=== PATIENT | female | born 1965 | race Hispanic/Latino ===

== ENCOUNTER 2017-04-20 09:42 | Emergency (ER) | payer BC ==
[2017-04-20 09:43] VITALS: BMI 30.1
[2017-04-20 10:15] VITALS: TEMP 98.2; O2SAT 100
--- NOTE | 2017-04-20 10:27 | ED PDOC ---
Arrival/HPI - General Chief Complaint: Back Pain Time Seen by Provider: 04/20/17 10:11 Historian: Patient - History of Present Illness Narrative History of Present Illness (Text): 51 y/o F c PMHx HTN, s/p ACL repair 2 months ago p/w thoracic pain and shortness of breath. Patient states back and chest pain began 3 days ago. Pain is sharp, focal, R parasternal and R upper back, pleuritic. She notes shortness of breath beginning today. She denies fever, cough, hemoptysis, leg swelling, recent travel, hormone use, previous DVT/PE, injury, trauma, nausea, vomiting. Time/Duration: < week (3 days) Severity Level: Mild Past Medical History - Provider Review Nursing Documentation Reviewed: Yes - Travel History Have you recently traveled outside [place] w/in the past 3 mons?: Yes - Cardiac Hx Cardiac Disorders: Yes Hx Hypertension: Yes - Pulmonary Hx Respiratory Disorders: No - Neurological Hx Neurological Disorder: No - HEENT Hx HEENT Disorder: No - Renal Hx Renal Disorder: No - Endocrine/Metabolic Hx Endocrine Disorders: No - Hematological/Oncological Hx Blood Disorders: No - Integumentary Hx Dermatological Disorder: No - Musculoskeletal/Rheumatological Hx Musculoskeletal Disorders: No - Gastrointestinal Hx Gastrointestinal Disorders: No - Genitourinary/Gynecological Hx Genitourinary Disorders: No - Psychiatric Hx Psychophysiologic Disorder: No Hx Substance Use: No - Surgical History Hx Dilation and Curettage: Yes Hx Hysterectomy: Yes Hx Musculoskeletal Surgery: Yes (left knee partial knee replacement, right knee acl repair) Family/Social History - Physician Review Nursing Documentation Reviewed: Yes Family/Social History: No Known Family HX Smoking Status: Never Smoked Hx Alcohol Use: Yes Frequency of alcohol use: Socially Hx Substance Use: No Allergies/Home Meds Allergies/Adverse Reactions: Allergies blueberry Allergy (Verified 04/20/17 10:18) URTICARIA Review of Systems - Patients Enrolled in [employer] [X]: A conversation was conducted with the primary medical doctor. - Physician Review All systems were reviewed & negative as marked: Yes - Review of Systems Constitutional: absent: Fevers Gastrointestinal: absent: Vomiting Physical Exam - Physical Exam Narrative Physical Exam (Text): Constitutional: No acute distress. Head: Normocephalic. Atraumatic. Eyes: PERRL. ENT: Moist mucous membranes. Neck: Supple. Cardiovascular: Regular rate. Chest: Reproducible tenderness R parasternal. Respiratory: Clear to auscultation bilaterally. GI: Soft. Nontender. Nondistended. Back: R thoracic tenderness. No midline tenderness. No CVA tenderness. Musculoskeletal: No tenderness or swelling of extremities. Skin: No rash. Neurologic: Alert, no focal deficit. Vital Signs Temp Pulse Resp BP Pulse Ox 04/20/17 12:07 71 18 116/68 100 04/20/17 11:08 75 18 118/65 100 04/20/17 10:11 98.2 F 78 17 121/61 100 Medical Decision Making ED Course and Treatment: Impression: 51 y/o F c reproducible chest/back pain, pleuritic with shortness of breath s/p ACL repair 2 months ago. Differential includes costochondritis vs PE. Pulse oximetry, HR normal. Will send D dimer and CXR. Toradol for pain. HISTORY: chest pain, back pain, dyspnea COMPARISON: No prior. TECHNIQUE: Chest PA and lateral FINDINGS: LUNGS: No active pulmonary disease. PLEURA: No significant pleural effusion identified. No pneumothorax apparent. CARDIOVASCULAR: Normal. OSSEOUS STRUCTURES: No significant abnormalities. VISUALIZED UPPER ABDOMEN: Normal. OTHER FINDINGS: None. IMPRESSION: No active disease. 04/20/17 13:46 FINDINGS: PULMONARY ARTERIES: There is mild enlargement of the main pulmonary artery. No filling defects to suggest acute pulmonary embolus. AORTA: No aortic dissection. No thoracic aortic aneurysm. LUNGS: The lungs are well inflated. There is patchy ground-glass attenuation in the lungs. No nodule, mass or pulmonary consolidation. PLEURAL SPACES: No effusion or pneuomothorax. HEART: The heart is normal in size. No pericardial effusion. LYMPH NODES: No pathologic lymphadenopathy. BONES, CHEST WALL: Unremarkable. No fracture or destructive lesion OTHER FINDINGS: Unremarkable. IMPRESSION: No CT evidence for acute pulmonary embolism. No focal consolidation or pneumothorax. Patchy ground-glass attenuation in the lungs could be related to nonspecific infection/inflammation. Patient in no distress in ED. Vital signs normal. Will discharge home, f/u PMD Ded[place], instructed to return to ED for worsening breathing, fever, cough, or pain. - Lab Interpretations Lab Results: 04/20/17 11:10 04/20/17 11:10 Lab Results 04/20/17 11:10: Sodium 141, Potassium 4.2, Chloride 103, Carbon Dioxide 28, Anion Gap 14, BUN 23 H, Creatinine 1.1, Est GFR ( Amer) > 60, Est GFR ( Non-Af Amer) 53, Random Glucose 93, Calcium 10.3, Total Bilirubin 0.8, AST 26, ALT 34, Alkaline Phosphatase 84, Total Protein 8.3, Albumin 4.6, Globulin 3.7, Albumin/Globulin Ratio 1.2 04/20/17 11:10: D-Dimer, Quantitative 372 H 04/20/17 11:10: WBC 6.3, RBC 4.25, Hgb 12.8, Hct 37.9, MCV 89.2, MCH 30.1, MCHC 33.8, RDW 12.5, Plt Count 285, MPV 9.4, Gran % 56.9, Lymph % (Auto) 34.1, Allen % (Auto) 6.9 H, Eos % (Auto) 1.6, Baso % (Auto) 0.5, Gran # 3.61, Lymph # 2.2, Allen # 0.4, Eos # 0.1, Baso # 0.03 04/20/17 10:22: Urine Color Yellow, Urine Appearance Sl cloudy, Urine pH 6.0, Ur Specific [place] <= 1.005, Urine Protein Negative, Urine Glucose (UA) Negative, Urine Ketones Negative, Urine Blood Trace-intact H, Urine Nitrate Negative, Urine Bilirubin Negative, Urine Urobilinogen 0.2, Ur Leukocyte Esterase Negative, Urine RBC 0 - 2, Urine WBC 0 - 2, Ur Epithelial Cells 10 - 12 , Urine Bacteria Few, Urine HCG, Qual Negative - RAD Interpretation Radiology Orders: 04/20/17 10:22 CHEST TWO VIEWS (PA/LAT) [RAD] Stat 04/20/17 11:46 ANGIO CHEST PE PROTOCOL [CT] Stat - EKG Interpretation EKG Interpretation (Text): 04/20/17 11:09 NSR 63, No ST elevations, Normal axis and intervals. Interpreted by ED Physician: Yes Type: 12 lead EKG - Medication Orders Current Medication Orders: Discontinued Medications Ketorolac Tromethamine (Toradol) 15 mg IVP STAT STA Stop: 04/20/17 10:23 Last Admin: 04/20/17 11:00 Dose: 15 mg MAR Pain Assessment Document 04/20/17 11:00 AUDREY (Rec: 04/20/17 11:14 AUDREY [id number]) Pain Reassessment Is this a pain reassessment? No Sleep Is patient sleeping during reassessment? No Presence of Pain Presence of Pain Yes Pain Scale Used Pain Scale Used Numeric IVP Administration Document 04/20/17 11:00 AUDREY (Rec: 04/20/17 11:14 AUDREY [id number]) Charges for Administration # of IVP Administrations 1 Disposition/Present on Arrival - Present on Arrival Any Indicators Present on Arrival: No History of DVT/PE: No History of Uncontrolled Diabetes: No Urinary Catheter: No History of Decub. Ulcer: No History Surgical Site Infection Following: None - Disposition Have Diagnosis and Disposition been Completed?: Yes Diagnosis: Costochondritis Disposition: HOME/ ROUTINE Disposition Time: 13:46 Patient Plan: Discharge Condition: STABLE Discharge Instructions (ExitCare): Costochondritis (ED) Additional Instructions: FINDINGS: PULMONARY ARTERIES: There is mild enlargement of the main pulmonary artery. No filling defects to suggest acute pulmonary embolus. AORTA: No aortic dissection. No thoracic aortic aneurysm. LUNGS: The lungs are well inflated. There is patchy ground-glass attenuation in the lungs. No nodule, mass or pulmonary consolidation. PLEURAL SPACES: No effusion or pneuomothorax. HEART: The heart is normal in size. No pericardial effusion. LYMPH NODES: No pathologic lymphadenopathy. BONES, CHEST WALL: Unremarkable. No fracture or destructive lesion OTHER FINDINGS: Unremarkable. IMPRESSION: No CT evidence for acute pulmonary embolism. No focal consolidation or pneumothorax. Patchy ground-glass attenuation in the lungs could be related to nonspecific infection/inflammation. Prescriptions: Ibuprofen [Motrin] 600 mg PO Q6 #25 tab Referrals: Kevin Hutchins MD [Primary Care Provider] - Follow up with primary Forms: [employer] (Malay)
[2017-04-20 11:09] VITALS: RESP 18
[2017-04-20 11:19] LABS: URINE BILIRUBIN NEGATIVE (NEGATIVE); URINE BLOOD TRACE-INTACT (NEGATIVE); URINE GLUCOSE (UA) NEGATIVE (NEGATIVE); URINE KETONE NEGATIVE (NEGATIVE); URINE LEUKOCYTE ESTERASE NEGATIVE Leu/uL (NEGATIVE); URINE PROTEIN NEGATIVE mg/dL (<30 mg/dL); URINE UROBILINOGEN 0.2 E.U./dL (<1 E.U./dL)
[2017-04-20 11:24] LABS: URINE APPEARANCE SL CLOUDY (CLEAR); URINE COLOR YELLOW (YELLOW)
[2017-04-20 11:26] LABS: URINE BACTERIA FEW (NEG); URINE RBC 0 - 2 /hpf (0-2); URINE WBC 0 - 2 /hpf (0-6)
[2017-04-20 11:26] LABS: BASO # 0.03 K/mm3 (0.0-2.0); BASO % 0.5 % (0.0-3.0); EOS # 0.1 (0.0-0.7); EOS % 1.6 % (1.5-5.0); GRAN # 3.61 (1.4-6.5); GRAN % 56.9 % (50.0-68.0); HEMATOCRIT 37.9 % (36.0-48.0); LYMPH # 2.2 (1.2-3.4); LYMPH % 34.1 % (22.0-35.0); MEAN CELL VOLUME 89.2 fl (80.0-105.0); MEAN CORPUSCULAR HEMOGLOBIN 30.1 pg (25.0-35.0); MEAN CORPUSCULAR HGB CONC 33.8 g/dl (31.0-37.0); MEAN PLATELET VOLUME 9.4 fl (7.0-11.0); MONO # 0.4 (0.1-0.6); MONO % 6.9 % (1.0-6.0); RED CELL DISTRIBUTION WIDTH 12.5 % (11.5-14.5); WHITE BLOOD COUNT 6.3 10^3/ul (4.5-11.0)
[2017-04-20 11:31] LABS: ALB/GLOB RATIO 1.2 (1.1-1.8); ALKALINE PHOSPHATASE 84 U/L (38-126); ALT/SGPT 34 U/L (7-56); AST/SGOT 26 U/L (14-36); BILIRUBIN,TOTAL 0.8 mg/dL (0.2-1.3); BLOOD UREA NITROGEN 23 mg/dL (7-21); CALCIUM 10.3 mg/dL (8.4-10.5); CARBON DIOXIDE 28 mmol/L (21-33); CHLORIDE 103 mmol/L (98-107); GFR AFRICAN-AMERICAN > 60; GLUCOSE,RANDOM 93 mg/dL (70-110); POTASSIUM 4.2 mmol/L (3.6-5.0); SODIUM 141 mmol/L (132-148); TOTAL PROTEIN 8.3 g/dL (5.8-8.3)
[2017-04-20 12:08] VITALS: BP 116/68; PULSE 71
--- NOTE | 2017-04-20 12:17 | RAD ---
HISTORY: chest pain, back pain, dyspnea COMPARISON: No prior. TECHNIQUE: Chest PA and lateral FINDINGS: LUNGS: No active pulmonary disease. PLEURA: No significant pleural effusion identified. No pneumothorax apparent. CARDIOVASCULAR: Normal. OSSEOUS STRUCTURES: No significant abnormalities. VISUALIZED UPPER ABDOMEN: Normal. OTHER FINDINGS: None. IMPRESSION: No active disease.
[2017-04-20] MEDS ORDERED: Iohexol 350 MG/100 ML VIAL ONE (12:28)
--- NOTE | 2017-04-20 13:42 | CT ---
PROCEDURE: CT Chest with contrast (Pulmonary Angiogram) HISTORY: chest pain, back pain, ACL repair 2 months ago COMPARISON: None available. TECHNIQUE: Axial computed tomography images were obtained of the chest in the pulmonary arterial phase of enhancement. Coronal and sagittal reformatted images were created and reviewed. Intravenous contrast dose: 100 mL Omnipaque 350 Radiation dose: Total exam DLP = 572.31 mGy-cm. This CT exam was performed using one or more of the following dose reduction techniques: Automated exposure control, adjustment of the mA and/or kV according to patient size, and/or use of iterative reconstruction technique. FINDINGS: PULMONARY ARTERIES: There is mild enlargement of the main pulmonary artery. No filling defects to suggest acute pulmonary embolus. AORTA: No aortic dissection. No thoracic aortic aneurysm. LUNGS: The lungs are well inflated. There is patchy ground-glass attenuation in the lungs. No nodule, mass or pulmonary consolidation. PLEURAL SPACES: No effusion or pneuomothorax. HEART: The heart is normal in size. No pericardial effusion. LYMPH NODES: No pathologic lymphadenopathy. BONES, CHEST WALL: Unremarkable. No fracture or destructive lesion OTHER FINDINGS: Unremarkable. IMPRESSION: No CT evidence for acute pulmonary embolism. No focal consolidation or pneumothorax. Patchy ground-glass attenuation in the lungs could be related to nonspecific infection/inflammation.
--- NOTE | 2017-04-20 21:53 | CARD ---
APPROVED REPORT EKG Measurement Heart [id number] <Conclusion> Normal sinus rhythm Nonspecific T wave abnormality Abnormal ECG
== END 2017-04-20 14:02 | disposition home or self-care (01) ==
LOC: ED 09:42
DX: M94.0 Chondrocostal junction syndrome [Tietze] (principal); I10 Essential (primary) hypertension
CPT/HCPCS: 71020; 71275; 80053; 81001; 84703; 85025; 85378; 93005; 96374; 99285; J1885; Q9967